=== PATIENT | male | born 1995 | race Caucasian/White ===

== ENCOUNTER 2020-11-27 15:58 | Emergency (ER) | payer OTHER, SELFPAY ==
--- NOTE | ~2020-11-27 | XR_ITS ---
EXAMINATION: XR chest 1V portable DATE: 11/27/2020 16:47 INDICATION: Single episode. Chest pain radiating down the left arm and leg. TECHNIQUE: AP view of the chest was obtained. COMPARISON: Chest radiograph dated 06/20/2019 FINDINGS: The lungs remain clear with no focal airspace opacities, pulmonary edema, pleural effusion or pneumot horax. The cardiomediastinal silhouette is normal. Visualized bones and soft tissues are unremarkable . IMPRESSION: 1. Normal chest radiograph. Reviewed, dictated and finalized at location A. IMPRESSION: 1. Normal chest radiograph.
--- NOTE | 2020-11-27 15:59 | ECG_ITS ---
Measurements Intervals [place] Rate: 81 P: 56 AR: 188 QRS: 27 QRSD: 99 T: 43 QT: 360 QTc: 420 Interpretive Statements SINUS RHYTHM BASELINE ARTIFACT- II, III, AVR, AVL, AVF, V1-V4 NORMAL ECG Electronically Signed On 11-27-2020 16:11:33 CDT by Hitesh Cisneros D.O.
[2020-11-27 16:08] VITALS: BP 139/96; PULSE 85; RESP 16; TEMP 37.1; O2SAT 100
[2020-11-27 16:19] LABS: Basophils Absolute Auto 0.1 K/mm3 (0.0-0.1); Basophils Percent Auto 0.5 % (0.2-1.2); Eosinophils Absolute Auto 0.3 K/mm3 (0-0.3); Eosinophils Percent Auto 3.4 % (0-4.4); Hematocrit 45.1 % (42.0-52.0); Immature Granulocyte Absolute 0.03 K/mm3 (0.00-0.031); Immature Granulocyte Percent A 0.3 % (0-0.5); Lymphocytes Absolute Auto 2.47 K/mm3 (0.9-3.2); Mean Corpuscular HGB Conc 35.5 g/dl (32-36); Mean Corpuscular Hemoglobin 29.9 pg (26-34); Mean Corpuscular Volume 84.3 fl (80-100); Mean Platelet Volume 10.4 fl (7.4-10.4); Monocytes Absolute Auto 0.5 K/mm3 (0.1-0.6); Monocytes Percent Auto 5.5 % (2.6-8.5); Neutrophils Absolute Auto 6.4 K/mm3 (1.3-6.7); Neutrophils Percent Auto 65.3 % (45.5-73.1); Platelet Count Result 215 k/mm3 (150-375); Red Blood Count 5.35 M/mm3 (4.6-6.20); Red Cell Distribution Width 12.2 % (11.5-14.5); White Blood Count 9.9 K/mm3 (4.5-10.0)
[2020-11-27 16:30] LABS: Anion Gap 8 mmol/L (8-16); Blood Urea Nitrogen 23 mg/dL (9-20); Calcium 9.6 mg/dL (8.4-10.2); Carbon Dioxide 28 mmol/L (22-30); Chloride 102 mmol/L (98-107); Creatine Kinase 135 U/L (55-170); Estimated CRCL calculation 81 ml/min; Estimated Glomerular Filt Rate > 60; Glucose 91 mg/dL (75-110); Potassium 3.6 mmol/L (3.4-5.0); Sodium 138 mmol/L (137-145)
[2020-11-27] MEDS: SODIUM CHLORIDE 0.9% IV 1,000 ML 999 ML IV CONT (16:34)
[2020-11-27 16:42] LABS: Troponin I < 0.012 ng/mL (0.000-0.034)
[2020-11-27 17:20] LABS: Add Urine Microscopic? YES; Appearance Urine Cloudy (Clear); Bilirubin Urine Negative (Negative); Blood Urine Negative (Negative); Color Urine Yellow (Yellow); Glucose Urine UA Negative (Negative); Ketones Urine Negative (Negative); Leukocyte Esterase Ur Negative LEU/UL (Negative); Nitrate Urine Negative (Negative); Protein Urine Negative (Negative); RBC Urine 0-2 /hpf (0-2); Specific Grav Ur 1.018 (1.001-1.035); Urobilinogen Urine Negative mg/dL (<2.0); WBC Urine 0-3 /hpf
[2020-11-27 17:41] LABS: Amphetamine Screen Urine Negative (Negative); Barbiturate Screen Urine Negative (Negative); Benzodiazepines Screen Urine Negative (Negative); Cannabinoid Screen Urine Negative (Negative); Cocaine Screen Urine Negative (Negative); Methadone Screen Urine Negative (Negative); Opiate Screen Urine Negative (Negative); Phencyclidine Screen Urine Negative (Negative)
[2020-11-27 18:00] VITALS: BP 113/72; BP 121/77; PULSE 62; PULSE 75
[2020-11-27 18:05] VITALS: BP 120/91; PULSE 90
--- NOTE | 2020-11-27 18:38 | ED.GENADULT ---
HPI - General Adult General Chief complaint: Syncope Stated complaint: sob/syncopal event Time Seen by Provider: 11/27/20 16:03 Source: patient, family and RN notes reviewed Mode of arrival: ambulatory Limitations: no limitations History of Present Illness HPI narrative: Patient is a 25-year-old male who presents to emergency department for evaluation of syncope patient was walking to his car when he had brief syncope noting that he had syncope for less than a second patient notes that he got into his vehicle drove home and then presents to emergency department with his patient notes since the syncope he has had some right-sided chest discomfort left arm and left leg pain and has had some issues with his vision which have been going on over the last couple of weeks patient notes that he was recently started on Lexapro by primary care for depression patient notes that he did have contact with his primary care who advised him to discontinue taking the Lexapro patient on arrival to emergency department is not taken anything for his symptoms and is otherwise resting in no distress Related Data Home Medications Medication Instructions Recorded Confirmed escitalopram oxalate [Lexapro] 10 mg PO DAILY 11/27/20 Allergies Allergy/AdvReac Type Severity Reaction Status Date / Time peanut Allergy Severe Anaphylactic Verified 11/27/20 16:12 Shock uncooked fruits/veggies Allergy Severe Anaphylactic Uncoded 06/20/19 18:37 Shock Review of Systems Review of Systems: All systems reviewed & are unremarkable except as noted in HPI and below PMFSH Past Medical History Medical History Patient denies significant medical history Surgical History Surgical History History of orthopedic surgery Social History Social History Gender identity (if verbalized by the patient): Male Exam Narrative: Exam Narrative: GENERAL: Well-appearing, well-nourished, and in no acute distress. HEAD: Normocephalic, atraumatic. EYES: PERRLA and EOMI. ENT: Nares clear, no rhinorrhea or epistaxis. Mucous membranes moist. CHEST: Clear to auscultation. No respiratory distress. No wheezes rales or rhonchi. Reproducible mid chest tenderness. HEART: Regular rate and rhythm. No murmur heard. Normal peripheral pulses. ABDOMEN: Soft, nontender, nondistended, normal active bowel sounds. EXTREMITIES: Normal range of motion. No edema. No cervical thoracic or lumbar tenderness SKIN: Warm, dry, no rash. NEURO: No focal deficits. Alert and oriented x3. Cranial nerves II through XII grossly intact. Normal speech and gait PSYCH: Normal mood and affect. Course Course Emergency Course: Patient in the room in no distress has been hydrated evaluated felt appropriate for outpatient reevaluation no distress no concerning findings in the evaluation advised to follow with primary care and agrees with the plan will be discharged with his ABCs and vital signs intact and stable Vital Signs Vital signs: Vital Signs Temperature 98.7 F 11/27/20 16:08 Pulse Rate 85 11/27/20 16:08 Respiratory Rate 16 11/27/20 16:08 Blood Pressure 139/96 H 11/27/20 16:08 Pulse Oximetry 100 11/27/20 16:08 Temperature 98.7 F 11/27/20 16:08 Pulse Rate 90 11/27/20 18:05 Respiratory Rate 16 11/27/20 16:08 Blood Pressure 120/91 H 11/27/20 18:05 Pulse Oximetry 100 11/27/20 16:08 Medical Decision Making MDM Narrative Medical decision making narrative: Patient presented with syncope which was brief in nature potentially vasovagal could be related to his new medication which she will discontinue will follow with primary care felt appropriate for outpatient reevaluation is afebrile nontoxic-appearing no distress and felt appropriate for outpatient reevaluation given reasons to return and
[2020-11-27 18:56] VITALS: BP 119/80; PULSE 58; RESP 19; O2SAT 100
== END 2020-11-27 18:59 | disposition home or self-care (01) ==
PROVIDERS: Emergency Medicine; Emergency Medicine Emergency Medical Services; Emergency Provider Emergency Medicine; PCP Registered Nurse
DX: R55 Syncope and collapse (principal)
CPT/HCPCS: 36415; 71045; 80048; 80307; 81001; 82550; 84484; 85025; 93005; 96361; 96365; 99284; J0131; J7030